=== PATIENT | female | born 1975 | race Caucasian/White ===

== ENCOUNTER 2021-12-26 03:48 | Observation (INO) | payer OTHER, SELFPAY ==
--- NOTE | ~2021-12-26 | XR_ITS ---
EXAMINATION: XR shoulder LT min 2V DATE: 12/26/2021 05:07 INDICATION: Left shoulder pain. Fall. TECHNIQUE: 3 views of left shoulder were obtained. COMPARISON: None. FINDINGS: There is a comminuted fracture of left clavicle involving the middle third. The main distal fracture fragment demonstrates one shaft width inferior displacement and shortening. Joint spaces ar e normal. IMPRESSION: 1. Comminuted fracture involving middle third of left clavicle. Reviewed, dictated and finalized at location A.
--- NOTE | ~2021-12-26 | CT_ITS ---
EXAMINATION: CT cervical spine wo con DATE: 12/26/2021 04:37 INDICATION: Left neck pain. Fall. TECHNIQUE: Computed tomography (CT) of the cervical spine was performed without intravenous contrast. Automated exposure control and iterative reconstruction technique were employed. The dose-length pro duct was 440.73 mGy-cm. COMPARISON: None FINDINGS: Bone alignment is normal. Vertebral body heights are normal. There is severely decreased di sc height at C3-C4, mildly decreased disc height at C4-C5, and severely decreased disc height at C5-C 6 and C6-C7. The following disc levels are specifically discussed: C2-C3: There is no uncovertebral joint osteoarthritis. There is no facet joint osteoarthritis. There is no neural foraminal stenosis. There is no central canal stenosis. C3-C4: There is severe bilateral uncovertebral joint osteoarthritis. There is moderate bilateral face t joint osteoarthritis. There is mild bilateral neural foraminal stenosis. There is mild central janis l stenosis. C4-C5: There is mild bilateral uncovertebral joint osteoarthritis. There is mild right and moderate l eft facet joint osteoarthritis. There is mild left neural foraminal stenosis. There is no central can al stenosis. C5-C6: There is severe bilateral uncovertebral joint osteoarthritis. There is mild bilateral facet nick int osteoarthritis. There is mild bilateral neural foraminal stenosis. There is mild central canal st enosis. C6-C7: There is moderate severe left uncovertebral joint osteoarthritis. There is mild bilateral face t joint osteoarthritis. There is mild left neural foraminal stenosis. There is mild central canal sarah nosis. C7-T1: There is no uncovertebral joint osteoarthritis. There is severe right and mild left facet join t osteoarthritis. There is mild right neural foraminal stenosis. There is no central canal stenosis. IMPRESSION: 1. No fracture. 2. Severe cervical spondylosis. Reviewed, dictated and finalized at location A.
--- NOTE | ~2021-12-26 | CT_ITS ---
EXAMINATION: CT shoulder LT wo con DATE: 12/27/2021 11:41 INDICATION: Left clavicle fracture TECHNIQUE: High resolution computed tomography (CT) of the left shoulder was performed without intrav enous contrast. Additional sagittal and coronal reconstructions were performed. Automated exposure co ntrol and iterative reconstruction technique were employed. The dose-length product was 391.58 mGy-cm . COMPARISON: None FINDINGS: Comminuted mid diaphyseal fracture of the left clavicle. The fracture affects approximately 3 cm segm ent which is split longitudinally into 2 fragments which are angulated approximately 80 degrees betwe en the larger medial and lateral sided fragments. The medial fragment is displaced proximal 1.5 cm an teriorly relative to the lateral fragment and there is approximately 1.5 cm overriding. The lateral m argin of the fracture remains medial to the footplate of the coracoclavicular ligament. There is norm al alignment and joint space at the acromioclavicular and glenohumeral joint spaces. No other fractur es identified. Mild discoid atelectasis in the left lower lobe. Remainder of the visualized lungs are clear. Moderate to severe lower cervical spondylosis. IMPRESSION: 1. Comminuted mid diaphyseal fracture of the left clavicle with displacement as detailed above. Reviewed, dictated and finalized at location A.
[2021-12-26 03:59] VITALS: BP 148/103; PULSE 100; RESP 24; TEMP 36.8; O2SAT 100
[2021-12-26] MEDS: ONDANSETRON INJ 4 MG/2 ML VIAL IV PUSH ×2 (04:16→07:11)
[2021-12-26] MEDS: MORPHINE SULFATE (*CRX) 4 MG/ML INJ IV PUSH (04:16)
--- NOTE | 2021-12-26 04:23 | ED.UPPEXIN ---
HPI - Extremity Injury (Upper) General Chief Complaint: Extremity Injury, Upper Stated Complaint: left shoulder Time Seen by Provider: 12/26/21 03:51 Source: patient Mode of arrival: ambulatory Limitations: no limitations History of Present Illness HPI narrative: This is a 46 year old female who presents for evaluation of left shoulder pain s/p fall. Patient states she accidentally fall out of the hot tub onto her left shoulder. She is having significant pain to left shoulder/clavicle. She also reports neck pain. She denies hitting her head or LOC. She denies back pain. She also denies limb weakness, numbness or tingling. She took ibuprofen 800 mg prior to arrival and she had no relief of her pain. Related Data Allergies Allergy/AdvReac Type Severity Reaction Status Date / Time No Known Allergies Allergy Verified 12/26/21 04:17 Review of Systems Review of Systems: All systems reviewed & are unremarkable except as noted in HPI and below Cardiovascular: Cardiovascular: Denies chest pain Musculoskeletal: Musculoskeletal: Denies back pain Neurologic: Denies syncope, Denies headache(s), Denies focal weakness and Denies numbness PMFSH Past Medical History Medical History (Updated 12/26/21 @ 06:22 by Diana Dos Santos MD) Depression Surgical History Surgical History (Updated 12/26/21 @ 04:26 by Diana Dos Santos MD) H/O laparoscopic adjustable gastric banding Social History Social History Smoking status: Never smoker Alcohol intake: current Exam Const: General: alert Nutritional Appearance: well nourished Orientation/consciousness: patient oriented x3 Other: mild distress due to pain HENMT: Head: normal to inspection and no hematomas Ears: external ears normal Face and sinus: normal facial exam Mouth: Yes Normal oral and palatal mucosa present and Yes lip normal Eyes: EOM: EOMs intact bilaterally Neck: Neck: no lymphadenopathy Chest: Chest palpation & inspection: normal inspection of the chest Resp: Effort & Inspection: normal respiratory effort Auscultation: clear to auscultation bilaterally Cardio: Rate: regular rate Rhythm: regular rhythm Heart sounds: no murmurs Other: bilateral radial pulse intact Back/Spine/Pelvis: Cervical Spine: Cervical spine tenderness Skin: General skin exam: normal color Rashes: no rashes Wounds: no wounds Neuro: General: patient oriented x3, moves all extremities and CN's II-XI intact bilaterally Cranial nerves: Yes Nystagmus not present Extrem: Other: TTP left midclavicle, no shoulder or arm deformity, Pain with movement of l Psych: Mental Status: mental status grossly normal Course Reevaluation(s) Reevaluation #1: I Discussed with patient and family about injury. I also showed them xray of her clavicle fracture. She has been given pain medication and appears more comfortable. Date: 12/26/21 Time: 06:21 Reevaluation #2: PAtient was more comfortable but when she tried to get up to be discharge. She reports her pain worsened. I discussed with patient she can have IV placed and pain medication. Care will be turned over to morning EDP and they can reassess. care turned over to DR. Stoner Date: 12/26/21 Time: 06:55 Vital Signs Vital signs: Vital Signs Temperature 98.2 F 12/26/21 03:59 Pulse Rate 100 12/26/21 03:59 Respiratory Rate 24 H 12/26/21 03:59 Blood Pressure 148/103 H 12/26/21 03:59 Pulse Oximetry 100 12/26/21 03:59 Temperature 98.2 F 12/26/21 03:59 Pulse Rate 100 12/26/21 03:59 Respiratory Rate 24 H 12/26/21 03:59 Blood Pressure 148/103 H 12/26/21 03:59 Pulse Oximetry 98 12/26/21 05:00 MDM - Extremity Injury (Upper) Imaging Data Attestation: I personally reviewed and interpreted this imaging study as follows: My impression: left shoulder xray- mid clavicular fracture, displaced Radiologist's impression: CT c spine No fracture or subluxation are noted. The vertebral
[2021-12-26 04:52] VITALS: O2SAT 99
[2021-12-26 05:00] VITALS: O2SAT 98
[2021-12-26] MEDS: KETOROLAC 15 MG/ML VIAL (*BKC) IV PUSH (05:05)
[2021-12-26] MEDS: oxyCODONE/ACETAMINOPHEN (*CRX) 5-325 MG TABLET 1 TABLET PO ×3 (05:05→21:48)
--- NOTE | 2021-12-26 06:58 | PC.NURSE ---
This RN entered room to discharge pt. Pt resting on stretcher, eyes closed, in no obvious distress. Pt signed discharge papers and this RN took IV out. Pt sat up to get into wheelchair and pain increased. Pt then stated I cant go home like this. I have good insurance. Requesting hospital admission. KALE Dos Santos notified.
[2021-12-26] MEDS: HYDROmorphone HCL INJ (*CRX) 1 MG/ML SYR IV PUSH (07:11)
[2021-12-26] MEDS: KETOROLAC 30 MG/ML VIAL (*BKC) IV PUSH ×3 (09:24→23:58)
[2021-12-26] MEDS: diazePAM INJ (*CRX) 10 MG/2 ML SYRINGE 5 MG IV PUSH (09:25)
--- NOTE | 2021-12-26 09:40 | PC.NURSE ---
This patient, Vazquez Green, was admitted to 2 Medical Room 259-01. Patient/family oriented to hospital policies and general routines including ID bracelet, bed and alarms, visiting hours, pain management, procedures, bathroom and other care routines, personal items, smoking policy, room service/diet, and visiting hours. Information on how to activate the Rapid Response Team has been discussed. Patient/Family are encouraged to report perceived risks to care and to ask questions if they do not understand what they are told or what they should do.
[2021-12-26 09:50] VITALS: BMI 37.0
[2021-12-26 10:00] VITALS: BP 145/97; PULSE 86; RESP 20; TEMP 36.4; O2SAT 100
[2021-12-26] MEDS: FLUoxetine HCL 20 MG CAPSULE 40 MG PO (11:33)
--- NOTE | 2021-12-26 12:12 | PM.IMHP ---
H&P: HPI History of Present Illness Date/Time: 12/26/21 12:12 Chief Complaint: Shoulder pain after a fall Narrative: 46yo female with depression here for left shoulder pain after a fall. Around midnight, patient fell while getting out of a hot tub on to her left shoulder. She states she slipped and fell. She denies alcohol or drug use. She laid on the ground because of the pain. had difficulty getting her up. EMS was going to be contacted but then the patient was able to get herself up and she was taken by private vehicle to the ED. She denies any head injury. She does complain of neck pain. There was no loss of consciousness. She has some tingling off and on in her left fingers. No weakness to the hand. She took ibuprofen prior to arrival with minimal benefit. She has been feeling well and denies any other symptoms prior to the fall. In the emergency room, she was tachypneic rate of 24 with a blood pressure 148/103. She does not have hypertension. No labs were done. Shoulder x-ray showed comminuted fracture involving the middle 3rd of the left clavicle. Cervical spine CT showed no fracture but did show severe cervical spondylosis. She was treated with morphine, Zofran, Percocet, Toradol, Valium and acetaminophen. Pain still poorly controlled and thus she was admitted for further pain control. Review of Systems Review of Systems: All systems reviewed & are unremarkable except as noted in HPI and below PMFSH Past Medical History Medical History (Updated 12/26/21 @ 12:25 by Albaro Goyal MD) Depression Surgical History Surgical History (Updated 12/26/21 @ 12:20 by Albaro Goyal MD) Ankle fracture, right s/p surgical repair H/O laparoscopic adjustable gastric banding Hx of cholecystectomy Family History Family History (Updated 12/26/21 @ 12:20 by lAbaro Goyal MD) Mother Hodgkins lymphoma Social History Social History (Updated 12/26/21 @ 12:21 by Albaro Goyal MD) Social History: Lives at home with her and child. Lifelong nonsmoker. Denies drug use. No history of drug use. She drinks alcohol on occasion. They have 1 cat 1 dog. She is a full code. She nominates her to be the individual would make medical decisions for her if she is unable. Smoking status: Never smoker Alcohol intake: current Drinks per week: 2 Substance use: never Spiritual care concerns: No Meds Home Medications and Allergies Home Medications Medication Instructions Recorded Confirmed Type dextroamphetamine-amphetamine ER 30 mg PO DAILY 12/26/21 12/26/21 History 30 mg 24hr capsule,extend release fluoxetine 40 mg capsule 40 mg PO DAILY 12/26/21 12/26/21 History ondansetron 4 mg disintegrating 4 mg PO Q6H PRN nausea and 12/26/21 Rx tablet vomiting #10 tabs oxycodone-acetaminophen 5 mg-325 1 tablet PO Q6H PRN pain #14 tabs 12/26/21 Rx mg tablet (Percocet) Allergies Allergy/AdvReac Type Severity Reaction Status Date / Time No Known Allergies Allergy Verified 12/26/21 04:17 Vital Signs Vital Signs - 24 hr 12/26/21 03:59 12/26/21 04:52 12/26/21 05:00 Temperature 98.2 F Pulse Rate 100 Respiratory Rate 24 H Blood Pressure 148/103 H Pulse Oximetry 100 99 98 Oxygen Delivery 12/26/21 10:00 12/26/21 09:40 Temperature 97.6 F Pulse Rate 86 Respiratory Rate 20 Blood Pressure 145/97 H Pulse Oximetry 100 Oxygen Delivery Room Air Exam Narrative: AF 97.6 145/97 86 20 100% ra Gen - well-nourished, well-developed female in no acute respiratory distress who is nontoxic-appearing lying semi recumbent in bed HEENT - normocephalic. Atraumatic. Pupils equal round and reactive. Extraocular motions intact. Sclera clear and anicteric. Nares patent. Oropharynx was clear. No oral lesions. Moist mucous membranes. Tongue was midline. Palate estefania symmetrically. No facial asymmetry. Neck - neck was supple. No domina
[2021-12-26 14:00] VITALS: BP 130/89; PULSE 91; RESP 18; TEMP 36.5; O2SAT 100
[2021-12-26] MEDS: LIDOCAINE 5% PATCH 1 PATCH TRANSDERM (15:03)
[2021-12-26 21:41] VITALS: BP 118/69; PULSE 77; RESP 20; TEMP 36.5; O2SAT 98
[2021-12-27] MEDS: oxyCODONE/ACETAMINOPHEN (*CRX) 5-325 MG TABLET 1 TABLET PO ×3 (03:17→19:42)
[2021-12-27 06:00] VITALS: BP 131/83; PULSE 75; RESP 20; TEMP 36.1; O2SAT 98
[2021-12-27] MEDS: KETOROLAC 30 MG/ML VIAL (*BKC) IV PUSH (06:18)
[2021-12-27] MEDS: LIDOCAINE 5% PATCH 1 PATCH TRANSDERM (08:21)
[2021-12-27] MEDS: FLUoxetine HCL 20 MG CAPSULE 40 MG PO (08:21)
--- NOTE | 2021-12-27 09:25 | PM.CNOR ---
Assessment and Plan Assessment and plan (1) Closed displaced fracture of left clavicle: Qualifiers: Clavicle location: shaft Encounter type: initial encounter Qualified Code(s): S42.022A - Displaced fracture of shaft of left clavicle, initial encounter for closed fracture <REBECCA Yeager - Last Filed: 12/27/21 15:40> Code(s): S42.002A - Fracture of unspecified part of left clavicle, initial encounter for closed fracture <REBECCA Yeager - Last Filed: 12/27/21 15:40> Status: Acute <REBECCA Yeager - Last Filed: 12/27/21 15:40> Assessment and Plan: History, exam and radiographs reviewed with the patient. CT scan obtained for further evaluation of fracture of the left clavicle. CT scan revealed a comminuted mid diaphyseal fracture of the left clavicle with displacement, joint spaces well-maintained. The fracture type and injury as well as radiographs discussed with the patient. Operative and nonoperative treatment options reviewed as well as the risks and benefits of each. The patient would like to further consider treatment options overnight. She currently reports 9/10 pain. We will add IV acetaminophen and Toradol. Reviewed pain medication regimen with nursing staff. Continue ice. Continue sling. Nonweightbearing left upper extremity. Will continue to follow and reevaluate surgical vs. conservative treatment plan tomorrow. <REBECCA Yeager - Last Filed: 12/27/21 15:40> Assessment and Plan: 38-year-old with left clavicle fracture status post fall from hot tub. CT scan shows clavicle fracture with good alignment. Recommend non operative treatment and follow-up. <Dylan Peck MD - Last Filed: 12/27/21 15:54> History of Present Illness HPI Consult date: 12/27/21 <REBECCA Yeager - Last Filed: 12/27/21 15:40> 12/27/21 <Dylan Peck MD - Last Filed: 12/27/21 15:54> Requesting physician: Albaro Goyal MD <REBECCA Yeager - Last Filed: 12/27/21 15:40> Chief complaint: Left clavicular fracture/intractable clavicular pa <KarimeGERRI GuajardoP - Last Filed: 12/27/21 15:40> Narrative: 38-year-old female admitted after a fall at home while getting out of her hot tub. Patient reports that she fell onto the left shoulder. She was unable to stand and laid on the concrete for approximally 3 hours per patient report. Her was initially unable to help her stand and considered contacting the EMS. Eventually patient was able to stand up independently and presented to the emergency room via private vehicle. She complained of severe left shoulder pain. Radiographs in the emergency room were obtained which revealed a comminuted fracture of the clavicle. A cervical spine CT showed severe cervical spondylosis but no evident fracture. She was admitted in the setting of uncontrolled pain of the left shoulder despite multiple pain medication administrations. Orthopedic consult requested by the hospitalist service. <GERRI YeagerP - Last Filed: 12/27/21 15:40> Review of Systems Constitutional: Constitutional: Reports no additional constitutional complaints, Denies chills, Denies fatigue, Denies fever(s), Denies headache(s) and Denies weakness <Karimesa Mihaela Kang [facility] - Last Filed: 12/27/21 15:40> Eyes: Eyes: Denies change in vision <Karimesa Mihaela Kang [facility] - Last Filed: 12/27/21 15:40> ENT: Reports Normal hearing present and Denies headache(s) <Karime Kang [facility] - Last Filed: 12/27/21 15:40> Cardiovascular: Cardiovascular: Denies chest pain and Denies dyspnea <Karimesa Mihaela Kang [facility] - Last Filed: 12/27/21 15:40> Respiratory: Respiratory: Denies cough, Denies dyspnea and Denies wheezing <Karime Kang [facility] - Last Filed: 12/27/21 15:40> Gastrointestinal: Gastrointestinal: Denies constipation, Denies diarrhea, Denies nausea and Denies vomiting <Karime Kang [facility] - Last Filed: 12/27/21 15:40> Genitourinary: Genitourinary: Denies
--- NOTE | 2021-12-27 10:34 | PM.IMPN ---
Progress Note: A&P Assessment and Plan (1) Closed displaced fracture of left clavicle: Code(s): S42.002A - Fracture of unspecified part of left clavicle, initial encounter for closed fracture Status: Acute Assessment and Plan: Patient with a comminuted fracture involving the middle 3rd of the left clavicle after a fall. Pain still poorly controlled. Will adjust pain management. Orthopedics consulted and appreciate their input. Surgery being considered. Continue sling. Check baseline labs. (2) Elevated blood pressure reading: Code(s): R03.0 - Elevated blood-pressure reading, without diagnosis of hypertension Status: Acute Assessment and Plan: Elevated blood pressure on admission. This has improved on recheck. Probably related to pain and anxiety. Continue to follow. (3) Depression: Code(s): F32.A - Depression, unspecified Status: Acute Assessment and Plan: Mood stable. Continue fluoxetine. She is also on dextroamphetamine which she wants to hold for now Plan DVT prophylaxis: SCDs Diet: Regular Code status: Full Subjective Date/time seen: 12/27/21 10:34 Interval history: 46yo female with depression here for shoulder pain after a fall and found to have a left clavicular fracture. Pain is still poorly controlled. No CP or SOB. No numbness or weakness in the left hand. Exam Narrative: AF 97.0 131/83 75 20 98% ra Gen - NARD Chest - lungs are clear to auscultation anteriorly. CV - RRR. S1-S2. Abd - abdomen was soft. Nontender. Nondistended. Positive bowel sounds. Ext - no pedal edema. 2+ left radial pulse. Left upper extremity in a sling. Neuro - Nml sensation to the left fingers. Nml operator electronic warfare. Psych - normal mood and affect. Skin - warm and dry. Objective Data Vital Signs Vital Signs: Vital Signs - 24 hr 12/26/21 14:00 12/26/21 21:41 12/26/21 20:00 Temperature 97.7 F 97.7 F Pulse Rate 91 77 Respiratory Rate 18 20 Blood Pressure 130/89 118/69 Pulse Oximetry 100 98 Oxygen Delivery Room Air 12/27/21 06:00 Temperature 97.0 F L Pulse Rate 75 Respiratory Rate 20 Blood Pressure 131/83 Pulse Oximetry 98 Oxygen Delivery Intake/Output Intake/Output: Intake & Output 0812/25/21 12/26/21 12/27/21 23:59 23:59 23:59 23:59 Intake Total 490 1110 Output Total 1500 Balance 490 -390 Meds/Results Medications: Active Medications Generic Name Dose Route Start Last Admin Trade Name Freq PRN Reason Stop Dose Admin Acetaminophen 650 mg 12/27/21 10:33 Acetaminophen 325 Mg Tablet PO Q6H PRN Mild Pain (1-3) or Fever Fluoxetine HCl 40 mg 12/26/21 09:00 12/27/21 08:21 Fluoxetine Hcl 20 Mg Capsule PO 40 mg DAILY JW Administration Lidocaine 1 patch 12/26/21 13:30 12/27/21 08:21 Lidocaine 5% Patch TRANSDERM 1 patch DAILY JW Administration Morphine Sulfate 2 mg 12/27/21 10:33 Morphine Sulfate (*Crx) 2 Mg/Ml Inj IV PUSH Q4H PRN Pain Rated 7-10 Ondansetron HCl 4 mg 12/26/21 08:57 Ondansetron Inj 4 Mg/2 Ml Vial IV PUSH Q4H PRN Nausea Oxycodone/Acetaminophen 1 tablet 12/27/21 10:34 Oxycodone/Acetaminophen (*Crx) 5-325 Mg Tablet PO Q4H PRN Pain Rated 4-6 Radiology Results: ITS Impressions Shoulder X-Ray 12/26/21 08:17 IMPRESSION: 1. Comminuted fracture involving middle third of left clavicle. Cervical Spine CT 12/26/21 08:45 IMPRESSION: 1. No fracture. 2. Severe cervical spondylosis.
[2021-12-27 11:38] LABS: Basophils Percent Auto 0.4 % (0.2-1.2); Eosinophils Absolute Auto 0.1 K/mm3 (0-0.3); Eosinophils Percent Auto 1.9 % (0-4.4); Hematocrit 38.2 % (37.0-47.0); Hemoglobin 12.4 g/dL (12.0-15.0); Immature Granulocyte Absolute 0.03 K/mm3 (0.00-0.031); Immature Granulocyte Percent A 0.4 % (0-0.5); Lymphocytes Absolute Auto 2.41 K/mm3 (0.9-3.2); Lymphocytes Percent Auto 32.9 % (18.3-44.2); Mean Corpuscular HGB Conc 32.5 g/dl (32-36); Mean Corpuscular Volume 92.3 fl (80-100); Mean Platelet Volume 10.3 fl (7.4-10.4); Monocytes Absolute Auto 0.5 K/mm3 (0.1-0.6); Monocytes Percent Auto 6.4 % (2.6-8.5); Neutrophils Absolute Auto 4.2 K/mm3 (1.3-6.7); Platelet Count Result 256 k/mm3 (150-375); Red Blood Count 4.14 M/mm3 (4.2-5.4); Red Cell Distribution Width 13.9 % (11.5-14.5); White Blood Count 7.3 K/mm3 (4.5-10.0)
[2021-12-27 11:48] LABS: INR 1.1; Prothrombin Time 14.1 Seconds (11.1-14.7)
[2021-12-27 11:49] LABS: Partial Thromboplastin Time 28.9 SECONDS (22.3-36.8)
[2021-12-27 11:53] LABS: Anion Gap 2 mmol/L (8-16); Blood Urea Nitrogen 21 mg/dL (7-17); Calcium 8.7 mg/dL (8.4-10.2); Carbon Dioxide 29 mmol/L (22-30); Chloride 101 mmol/L (98-107); Estimated CRCL calculation 93 ml/min; Estimated Glomerular Filt Rate > 60; Glucose 96 mg/dL (65-110); Magnesium 1.9 mg/dL (1.6-2.3); Sodium 132 mmol/L (137-145)
[2021-12-27] MEDS: MORPHINE SULFATE (*CRX) 2 MG/ML INJ IV PUSH ×3 (12:00→23:07)
[2021-12-27 14:11] VITALS: BP 108/63; PULSE 82; RESP 16; TEMP 36.6; O2SAT 93
[2021-12-27] MEDS: ONDANSETRON INJ 4 MG/2 ML VIAL IV PUSH (15:50)
[2021-12-27] MEDS: KETOROLAC 15 MG/ML VIAL (*BKC) IV PUSH (15:50)
[2021-12-27] MEDS: ACETAMINOPHEN 325 MG TABLET 650 MG PO (17:42)
[2021-12-27 22:13] VITALS: BP 123/78; PULSE 65; RESP 16; TEMP 36.4; O2SAT 93
[2021-12-28] MEDS: MORPHINE SULFATE (*CRX) 2 MG/ML INJ IV PUSH ×3 (03:13→16:29)
[2021-12-28] MEDS: oxyCODONE/ACETAMINOPHEN (*CRX) 5-325 MG TABLET 1 TABLET PO ×2 (05:13→10:54)
[2021-12-28 06:30] VITALS: BP 113/52; PULSE 62; RESP 20; TEMP 36.2; O2SAT 98
[2021-12-28] MEDS: LIDOCAINE 5% PATCH 1 PATCH TRANSDERM (08:17)
[2021-12-28] MEDS: FLUoxetine HCL 20 MG CAPSULE 40 MG PO (08:17)
--- NOTE | 2021-12-28 09:12 | PM.PNORT ---
Progress Note: A&P Assessment and Plan (1) Closed displaced fracture of left clavicle: Qualifiers: Clavicle location: shaft Encounter type: initial encounter Qualified Code(s): S42.022A - Displaced fracture of shaft of left clavicle, initial encounter for closed fracture <KarimeREBECCA Guajardo - Last Filed: 12/28/21 09:33> Code(s): S42.002A - Fracture of unspecified part of left clavicle, initial encounter for closed fracture <REBECCA Yeager - Last Filed: 12/28/21 09:33> Status: Acute <KarimeREBECCA Guajardo - Last Filed: 12/28/21 09:33> Assessment and Plan: Patient/ considering conservative vs. operative treatment options. Would like to further discuss with Dr. Peck prior to discharging home. Continue pain control. Ice. Sling. NWB LUE. OOB to chair. <REBECCA Yeager - Last Filed: 12/28/21 09:33> Additional Plan Patient seen and examined. Radiographs and CT scan reviewed with the patient and her . Operative and non operative treatment reviewed. Risks and benefits of each discussed in detail. They have elected for non operative treatment. May consider adding muscle relaxant to assist with discomfort. Otherwise discharged home when cleared and follow-up with Orthopedics next week. <Dylan Peck MD - Last Filed: 12/28/21 12:30> Subjective Subjective Date/Time Seen: 12/28/21 09:12 <REBECCA Yeager - Last Filed: 12/28/21 09:33> Interval history: Patient still with complaints of pain. Unsure whether to proceed with surgical vs. conservative treatment options. Concerned about discharge home with level of pain currently. <REBECCA Yeager - Last Filed: 12/28/21 09:33> Review of Systems Review of Systems: All systems reviewed & are unremarkable except as noted in HPI and below <REBECCA Yeager - Last Filed: 12/28/21 09:33> Exam Const: General: comfortable and no acute distress <REBECCA Yeager - Last Filed: 12/28/21 09:33> HENMT: Mouth: Yes moist mucous membranes <Karime Kang [facility] - Last Filed: 12/28/21 09:33> Eyes: General: appearance normal, both eyes and all related structures <Karime Kang [facility] Last Filed: 12/28/21 09:33> Neck: Neck: supple and no JVD <Karime Kang [facility] Last Filed: 12/28/21 09:33> Resp: Effort & Inspection: normal respiratory effort <Karime Kang [facility] - Last Filed: 12/28/21 09:33> Cardio: Rate: regular rate <Karime Kang [facility] - Last Filed: 12/28/21 09:33> Rhythm: regular rhythm <Karime Kang [facility] Last Filed: 12/28/21 09:33> GI: Inspection: non-distended <Karime Kang [facility] - Last Filed: 12/28/21 09:33> GI Palp: Yes Soft to palpation and No Tenderness to palpation present (GI) <Karime Kang [facility] - Last Filed: 12/28/21 09:33> Neuro: General: gait normal <Karime Kang [facility] - Last Filed: 12/28/21 09:33> Cognition (Neuro): normal cognition <Karime Kang [facility] Last Filed: 12/28/21 09:33> Speech: normal speech <Karime Kang [facility] - Last Filed: 12/28/21 09:33> Extrem: Left upper extremity: shoulder/upper arm tenderness of the clavicle, of the A-C joint, of the proximal humerus and over the biceps tendon; not of the scapula and not over the subacromial bursa, abnormal ROM held in an abnormal fashion ( Given recent fracture) in ADduction and ecchymosis (mild); no lacerations, elbow/forearm normal to inspection and normal ROM; no tenderness and no swelling, wrist normal to inspection and normal ROM; no tenderness and no swelling and hand normal to inspection, normal capillary refill, neurosensory exam normal Details: radial nerve sensory function normal, ulnar nerve sensory function normal, median nerve sensory function normal and digital nerve sensory function normal, tendon exam normal Location: of all digits, vascular exam radial pulse present Details: 2+ and normal ROM of fingers; no tenderness <REBECCA Yeager - Last Filed: 12/28/21 09:33> Psych: Mental St
[2021-12-28] MEDS: FAMOTIDINE 20 MG TABLET PO (11:14)
--- NOTE | 2021-12-28 11:37 | PM.IMPN ---
Progress Note: A&P Assessment and Plan (1) Closed displaced fracture of left clavicle: Qualifiers: Clavicle location: shaft Encounter type: initial encounter Qualified Code(s): S42.022A - Displaced fracture of shaft of left clavicle, initial encounter for closed fracture Code(s): S42.002A - Fracture of unspecified part of left clavicle, initial encounter for closed fracture Status: Acute Assessment and Plan: Patient with a fall landing on her left shoulder. Xray showing a comminuted fracture involving the middle 3rd of the left clavicle. Pain poorly controlled. Shoulder CT showing comminuted mid diaphyseal fracture of the left clavicle. Pain meds adjusted. Orthopedics consulted and appreciate their input. Surgery being considered. Continue sling. (2) Elevated blood pressure reading: Code(s): R03.0 - Elevated blood-pressure reading, without diagnosis of hypertension Status: Acute Assessment and Plan: Elevated blood pressure on admission. This has improved on recheck. Probably related to pain and anxiety. Continue to follow. (3) Depression: Code(s): F32.A - Depression, unspecified Status: Acute Assessment and Plan: Mood stable. Continue fluoxetine. She is also on dextroamphetamine which she wanted to hold for now Plan DVT prophylaxis: SCDs Diet: Regular Code status: Full Subjective Date/time seen: 12/28/21 11:38 Interval history: 46yo female with depression here for shoulder pain after a fall and found to have a left clavicular fracture. Pain is still poorly controlled at times up to 9/10 requiring Morphine. Morphine makes the pain better. Linch usually controls the pain to 6/10. No numbness or tingling to the left hand. Exam Narrative: AF 97.1 113/52 62 20 98% ra Gen - NARD Chest - lungs are clear to auscultation anteriorly. CV - RRR. S1-S2. Abd - abdomen was soft. NT/ND. Positive bowel sounds. Ext - no pedal edema. 2+ left radial pulse. Left upper extremity in a sling. Neuro - Nml sensation to the left fingers . Skin - warm and dry. Objective Data Vital Signs Vital Signs: Vital Signs - 24 hr 12/27/21 14:11 12/27/21 20:00 12/27/21 22:13 Temperature 97.8 F 97.6 F Pulse Rate 82 65 Respiratory Rate 16 16 Blood Pressure 108/63 123/78 Pulse Oximetry 93 93 Oxygen Delivery Room Air 12/28/21 06:30 Temperature 97.1 F L Pulse Rate 62 Respiratory Rate 20 Blood Pressure 113/52 L Pulse Oximetry 98 Oxygen Delivery Intake/Output Intake/Output: Intake & Output 12/25/21 12/26/21 12/27/21 12/28/21 23:59 23:59 23:59 23:59 Intake Total 490 1890 1020 Output Total 1500 800 Balance 490 390 220 Meds/Results Medications: Active Medications Generic Name Dose Route Start Last Admin Trade Name Freq PRN Reason Stop Dose Admin Acetaminophen 650 mg 12/27/21 10:33 12/27/21 17:42 Acetaminophen 325 Mg Tablet PO 650 mg Q6H PRN Administration Mild Pain (1-3) or Fever Famotidine 20 mg 12/29/21 09:00 Famotidine 20 Mg Tablet PO DAILY [facility] Fluoxetine HCl 40 mg 12/26/21 09:00 12/28/21 08:17 Fluoxetine Hcl 20 Mg Capsule PO 40 mg DAILY [facility] Administration Ketorolac Tromethamine 15 mg 12/27/21 10:55 12/27/21 15:50 Ketorolac 15 Mg/Ml Vial (*Bkc) IV PUSH 15 mg Q6H PRN Administration Pain Rated 4-6 Lidocaine 1 patch 12/26/21 13:30 12/28/21 08:17 Lidocaine 5% Patch TRANSDERM 1 patch DAILY [facility] Administration Morphine Sulfate 2 mg 12/27/21 10:33 12/28/21 08:47 Morphine Sulfate (*Crx) 2 Mg/Ml Inj IV PUSH 2 mg Q4H PRN Administration Pain Rated 7-10 Ondansetron HCl 4 mg 12/26/21 08:57 12/27/21 15:50 Ondansetron Inj 4 Mg/2 Ml Vial IV PUSH 4 mg Q4H PRN Administration Nausea Oxycodone/Acetaminophen 1 tablet 12/27/21 10:34 12/28/21 10:54 Oxycodone/Acetaminophen (*Crx) 5-325 Mg Tablet PO 1 tablet Q4H [place]
[2021-12-28 13:48] VITALS: BP 126/81; PULSE 78; RESP 16; TEMP 36.1; O2SAT 94
--- NOTE | 2021-12-28 15:14 | PM.DS ---
DS: Admitting Diagnosis Discharge Date 12/28/21 Admitting Diagnosis Fall, left clavicle fracture DS: Discharge Diagnosis Discharge Diagnosis (1) Closed displaced fracture of left clavicle: Qualifiers: Clavicle location: shaft Encounter type: initial encounter Qualified Code(s): S42.022A - Displaced fracture of shaft of left clavicle, initial encounter for closed fracture Code(s): S42.002A - Fracture of unspecified part of left clavicle, initial encounter for closed fracture Status: Acute (2) Elevated blood pressure reading: Code(s): R03.0 - Elevated blood-pressure reading, without diagnosis of hypertension Status: Acute (3) Depression: Code(s): F32.A - Depression, unspecified Status: Acute DS: Summary Hospital Course Reason for hospitalization: 46yo female with depression here for shoulder pain after a fall and found to have a left clavicular fracture. Please see H&P for details Hospital Course: Patient with a fall landing on her left shoulder. Xray showing a comminuted fracture involving the middle 3rd of the left clavicle. Pain was poorly controlled and she was admitted for this reason. Orthopedics consulted and appreciate their input. Shoulder CT showing comminuted mid diaphyseal fracture of the left clavicle. Pain medications were adjusted.?She was placed in a sling. Blood pressure was elevated on admission but improved on recheck.? Probably related to pain and anxiety.? Her mood remained stable. We continued her fluoxetine.? She is also on dextroamphetamine which she wanted to hold. She overall did well and was able to be discharged home on 12/28/21 Status at Discharge Cognitive/behavioral status at discharge: Stable Time Spent with Patient Time attestation: Total time spent providing and/or coordinating discharge services: 32 minutes Time spent: Greater than 30 minutes Exam Narrative: AF 97.1 113/52 62 20 98% ra Gen - NARD Chest - lungs are clear to auscultation anteriorly. CV - RRR. S1-S2. Abd - abdomen was soft. NT/ND. Positive bowel sounds. Ext - no pedal edema. 2+ left radial pulse. Left upper extremity in a sling. Neuro - Nml sensation to the left fingers . Skin - warm and dry. Discharge Plan Discharge Attending physician on discharge: Albaro Goyal Consulting providers: Dylan Peck Discharging Clinician: Albaro Goyal Anticipated Discharge Date/Time: 12/28/21 15:18 Patient Disposition: Home, Self-Care Activity: may shower and no driving Diet: as tolerated Discharge Instructions: Orthopedic Recommendations Dr. Dylan Peck [phone] Non-weightbearing left upper extremity. Sling. Okay to remove sling to do gentle range of motion of the elbow, wrist, hand. Would recommend stress ball for [employer] strengthening. Pain control. Ice. Follow up in the outpatient orthopedic clinic in 1-2 weeks for reevaluation. Patient Instructions: Antibiotic Form Stand Alone Forms: General Discharge Information Follow-up/Referrals: Dylan Peck MD [Physician] - 01/04/22 1:30 pm Discharge Medications: New ondansetron 4 mg tablet,disintegrating 4 mg PO Q6H PRN (Reason: nausea and vomiting) Qty: 10 0RF oxycodone-acetaminophen [Percocet] 5-325 mg tablet 1 tablet PO Q6H PRN (Reason: pain) Qty: 14 0RF diazepam 5 mg Tablet 5 mg PO Q8HR PRN (Reason: Muscle Spasm) Qty: 20 0RF Continued fluoxetine 40 mg capsule 40 mg PO DAILY dextroamphetamine-amphetamine 30 mg capsule,extended release 24hr 30 mg PO DAILY Date of admission: 12/26/21 08:57 Primary Care Provider: PHYSICIAN NOT ON STAFF,NONSTAFF Admitting Provider: Albaro Goyal Attending physician on admission: Albaro Goyal Condition: Stable
== END 2021-12-28 16:47 | disposition home or self-care (01) ==
LOC: ANHED 09:06 → ANH2MED 09:18
PROVIDERS: Admitting Provider Internal Medicine; Emergency Provider Emergency Medicine; Visit Provider Internal Medicine
DX: S42.022A Displaced fracture of shaft of left clavicle, initial encounter for closed fracture (principal); W19.XXXA Unspecified fall, initial encounter; R03.0 Elevated blood-pressure reading, without diagnosis of hypertension; F32.A Depression, unspecified; M47.812 Spondylosis without myelopathy or radiculopathy, cervical region; Z98.84 Bariatric surgery status; Z79.899 Other long term (current) drug therapy
CPT/HCPCS: 36415; 72125; 73030; 73200; 80048; 83735; 85025; 85610; 85730; 96374; 96375; 96376; 99285; A4565; A9270; G0378; J0131; J1170; J1885; J2270; J2405; J3360

== ENCOUNTER 2025-02-11 17:40 | Emergency (ER) | payer OTHER, SELFPAY ==
--- NOTE | ~2025-02-11 | CT_ITS ---
EXAMINATION: 1. EXAMINATION: CT facial bones w con DATE: 02/11/2025 18:49 INDICATION: Right-sided facial swelling TECHNIQUE: Computed tomography (CT) of the facial bones and maxillofacial region was performed without intravenous contrast. Coronal reconstructions were obtained. Automated exposure control and iterative reconstruction technique were employed. The dose-length product was 311.61 mGy-cm. COMPARISON: None. FINDINGS: No maxillofacial fractures. Dental disease with multiple dental restorations. There is periapical erosion at the right maxillary canine which erodes through the superficial cortex. There is an associated very small subperiosteal abscess measuring 7 x 7 x 3 mm. Mild mucosal thickening the right maxillary sinus. Remainder the paranasal sinuses are clear as are the bilateral mastoid air cells and middle ear cavities. Bilateral orbits are normal. Visualized portion of the brain are unremarkable. Moderate to severe spondylosis in the visualized cervical spine. IMPRESSION: 1. . Erosion at the right maxillary canine with associated small subperiosteal abscess. Reviewed, dictated and finalized at location A. IMPRESSION: 1. . Erosion at the right maxillary canine with associated small subperiosteal absce ss.
[2025-02-11 17:46] VITALS: BP 144/93; PULSE 100; RESP 18; TEMP 36.7; O2SAT 100
--- NOTE | 2025-02-11 18:06 | ED_ITS ---
HPI - Dental/Oral General Chief complaint: Headache Stated complaint: right ear pain, headache, and right face swelling Time Seen by Provider: 02/11/25 17:50 Source: patient Mode of arrival: ambulatory Limitations: no limitations History of Present Illness HPI Narrative: This is a 49 year old female that presents to the ER for right sided facial swelling. Ongoing since this afternoon. Reports earache, headache. Denies fever, vision changes, vomiting, numbness, weakness. Related Data Home Medications ?Medication ?Instructions ?Recorded ?Confirmed ?Last Taken ?Type dextroamphetamine-amphetamine ER 30 mg PO DAILY 01/04/22 12/25/21 History 30 mg 24hr capsule,extend release fluoxetine 40 mg capsule 40 mg PO DAILY 12/26/2112/0812/25/21 History Allergies Allergy/AdvReac Type Severity Reaction Status Date / Time No Known Allergies Allergy Verified 02/11/25 17:52 Review of Systems 2 Review of Systems: All systems reviewed & are unremarkable except as noted in HPI and below PMFSH Past Medical History Medical History Closed displaced fracture of left clavicle Depression Elevated blood pressure reading Surgical History Surgical History Ankle fracture, right s/p surgical repair H/O laparoscopic adjustable gastric banding Hx of cholecystectomy Family History Family History Mother Hodgkins lymphoma Social History Social History Social History: Lives at home with her and child. Lifelong nonsmoker. Denies drug use. No history of drug use. She drinks alcohol on occasion. They have 1 cat 1 dog. She is a full code. She nominates her to be the individual would make medical decisions for her if she is unable. Smoking status: Never smoker Alcohol intake: current Drinks per week: 2 Substance use: never Spiritual care concerns: No Exam 2 Narrative: GENERAL: Well-appearing, well-nourished, and in no acute distress. HEAD: Normocephalic, atraumatic. Mild right sided facial swelling below the eye EYES: PERRLA and EOMI. ENT: Nares clear, no rhinorrhea or epistaxis. Mucous membranes moist. Oropharynx without tonsillar hypertrophy exudate or other lesions. Bilateral TMs pearly albert non-bulging. No swelling or fluctuance noted/obvious dental abscess NECK: Supple. No adenopathy or masses. Normal ROM CHEST: Clear to auscultation. No respiratory distress. No wheezes rales or rhonchi HEART: Regular rate and rhythm. No murmur heard. Normal peripheral pulses. ABDOMEN: Soft, nontender, nondistended, normal active bowel sounds. EXTREMITIES: Normal range of motion. No edema. Strength equal in bilateral upper and lower extremities (5/5) SKIN: Warm, dry, no rash. NEURO: No focal deficits. Alert and oriented x3. Cranial nerves 2-12 grossly intact PSYCH: Normal mood and affect Course Course Emergency Course: patient updated on workup and agrees with plan of care Vital Signs Vital signs: Vital Signs Temperature 98.0 F 02/11/25 17:46 Pulse Rate 100 02/11/25 17:46 Respiratory Rate 18 02/11/25 17:46 Blood Pressure 144/93 H 02/11/25 17:46 Pulse Oximetry 100 02/11/25 17:46 Oxygen Delivery Room Air 02/11/25 17:46 Temperature 98.0 F 02/11/25 17:46 Pulse Rate 78 02/11/25 18:34 Respiratory Rate 20 02/11/25 18:34 Blood Pressure 123/90 02/11/25 18:34 Pulse Oximetry 99 02/11/25 18:34 Oxygen Delivery Room Air 02/11/25 17:46 MDM - Dental/Oral MDM Narrative Medical decision making narrative: Patient presents to the emergency department for right-sided facial swelling. She is afebrile and nontoxic appearing. Cbc without leukocytosis. Inflammatory markers are not elevated. Small subperiosteal abscess noted on CT. Patient given first dose of antibiotics IV in the ER. Instructed to have further follow up with her dentist. She was given warnings to return to the ER Differential Diagnosis Differential diagnosis: Likely dental caries, toothache and dental abscess Lab Data 02/11/25 17:55 02/11/25 17:55 Labs: Lab Results 02/11/25 Range/Units 17:55 WBC 8.1 (4.5-10.0) K/mm3 RBC 4.65 (4.2-5.4) M/mm3 Hgb 13.5 (12.0-15.0) g/dL Hct 41.5 (37.0-47.0) % MCV 89.2 (80-100) fl MCH 29.0 (26-34) pg MCHC 32.5 (32-36) g/dl RDW 12.9 (11.5-14.5) % Plt Count 306 (150-375) k/mm3 MPV 10.0 (7.4-10.4) fl Immature Gran % (Auto) 0.5 (0-0.5) % Neut % (Auto) 67.4 (45.5-73.1) % Lymph % (Auto) 22.9 (18.3-44.2) % [place] % (Auto) 7.7 (2.6-8.5) % Eos % (Auto) 1.0 (0-4.4) % Baso % (Auto) 0.5 (0.2-1.2) % Lymph # (Auto) 1.85 (0.9-3.2) K/mm3 [place] # (Auto) 0.6 (0.1-0.6) K/mm3 Eos # (Auto) 0.1 (0-0.3) K/mm3 Baso # (Auto) 0.0 (0.0-0.1) K/mm3 Abs Immat Gran (auto) 0.04 H (0.00-0.031) K/mm3 Absolute Neuts (auto) 5.5 (1.3-6.7) K/mm3 Absolute Nucleated RBC 0.000 (0.0-0.012) K/mm3 Nucleated RBC % 0.0 (0.0-0.2) % ESR 11 (0-20) mm/hr Sodium 136 L (137-145) mmol/L Potassium 3.9 (3.4-5.0) mmol/L Chloride 104 (98-107) mmol/L Carbon Dioxide 26 (22-30) mmol/L Anion Gap 6 (4-12) mmol/L BUN 17 (7-17) mg/dL Creatinine 0.76 (0.7-1.0) mg/dL Estim Creat Clear Calc 63 ml/min Estimated GFR > 60 (59 - ) Glucose 103 (65-110) mg/dL Calcium 9.1 (8.4-10.2) mg/dL C-Reactive Protein 0.6 (<1.0) mg/dL Imaging Data Radiologist's impression: ITS Impressions Face CT 02/11/25 19:14 IMPRESSION: 1. . Erosion at the right maxillary canine with associated small subperiosteal abscess. Critical Care Time Critical Care Time Critical Care Time: No Discharge Plan Discharge Clinical Impression: Abscess, dental Patient Disposition: Home Condition: Stable Instructions: Antibiotic Form, Dental Abscess (ED) Additional Instructions: Return to the Emergency Department if you experience fever >101, increasing swelling and redness of your tooth, or any other symptoms that are concerning to you Take antibiotic as prescribed. Tylenol or Ibuprofen as needed for pain. Follow up with your dentist. [facility] if needed, Dr. Mikal Spears Patient Language: [place] Prescriptions: New amoxicillin-pot clavulanate 875-125 mg tablet 1 tablet PO Q12H 10 Days Qty: 20 0RF hydrocodone-acetaminophen 5-325 mg tablet 1 tablet PO Q8H PRN (Reason: pain) Qty: 7 0RF No Action oxycodone-acetaminophen [Percocet] 5-325 mg tablet 1 tablet PO Q12H PRN (Reason: pain) Qty: 30 0RF ondansetron 4 mg tablet,disintegrating 4 mg PO Q6H PRN (Reason: nausea and vomiting) Qty: 10 0RF fluoxetine 40 mg capsule 40 mg PO DAILY dextroamphetamine-amphetamine 30 mg capsule,extended release 24hr 30 mg PO DAILY cyclobenzaprine 5 mg tablet 5 mg PO Q12H Qty: 10 0RF Follow-up/Referrals: UNKNOWN,DOCTOR [Primary Care Provider]
[2025-02-11 18:12] LABS: Hematocrit 41.5 % (37.0-47.0); Hemoglobin 13.5 g/dL (12.0-15.0); Immature Granulocyte Percent A 0.5 % (0-0.5); Lymphocytes Absolute Auto 1.85 K/mm3 (0.9-3.2); Mean Corpuscular HGB Conc 32.5 g/dl (32-36); Mean Corpuscular Hemoglobin 29.0 pg (26-34); Mean Corpuscular Volume 89.2 fl (80-100); Nucleated Red Blood Cells Absolute Auto 0.000 K/mm3 (0.0-0.012); Nucleated Red Blood Cells Perc 0.0 % (0.0-0.2); Platelet Count Result 306 k/mm3 (150-375); Red Blood Count 4.65 M/mm3 (4.2-5.4); White Blood Count 8.1 K/mm3 (4.5-10.0)
[2025-02-11 18:23] LABS: Anion Gap 6 mmol/L (4-12); Blood Urea Nitrogen 17 mg/dL (7-17); CRP 0.6 mg/dL (<1.0); Calcium 9.1 mg/dL (8.4-10.2); Carbon Dioxide 26 mmol/L (22-30); Chloride 104 mmol/L (98-107); Estimated CRCL calculation 63 ml/min; Estimated Glomerular Filt Rate > 60; Glucose 103 mg/dL (65-110); Potassium 3.9 mmol/L (3.4-5.0); Sodium 136 mmol/L (137-145)
[2025-02-11] MEDS: KETOROLAC 15 MG/ML VIAL (*BKC) IV PUSH (18:32)
[2025-02-11 18:34] VITALS: BP 123/90; PULSE 78; RESP 20; O2SAT 99
[2025-02-11] MEDS: AMPICILLIN SODIUM/SULBACTAM 3 GM in SODIUM CHLORIDE 0.9% IV 100 ML 200 ML IVPB (19:38)
[2025-02-11] MEDS: HYDROcodone/acetaminophen (*CRX) 5-325 MG TABLET 1 TAB PO (20:16)
[2025-02-11 20:30] VITALS: BP 125/81; PULSE 88; RESP 20; TEMP 36.9; O2SAT 98
== END 2025-02-11 20:31 | disposition home or self-care (01) ==
LOC: ANHED 20:06
PROVIDERS: Emergency Provider Physician Assistant
DX: K04.7 Periapical abscess without sinus (principal); F32.A Depression, unspecified; Z90.49 Acquired absence of other specified parts of digestive tract; Z79.899 Other long term (current) drug therapy
CPT/HCPCS: 36415; 70487; 80048; 85025; 85652; 86140; 96365; 96375; 99284; A9270; J0295; J1885; Q9967